=== PATIENT | male | born 1970 | race Caucasian/White ===

== ENCOUNTER → 2021-10-01 13:10 | Outpatient (BNVA) | payer OTHER, SELFPAY | PROVIDERS: PCP Family Medicine; Visit Provider Physician Assistant | DX: E66.01 Morbid (severe) obesity due to excess calories (principal); I10 Essential (primary) hypertension; K21.9 Gastro-esophageal reflux disease without esophagitis; M51.26 Other intervertebral disc displacement, lumbar region; I49.1 Atrial premature depolarization; Z68.44 Body mass index [BMI] 60.0-69.9, adult | CPT/HCPCS: 99202 ==

== ENCOUNTER → 2021-11-03 14:00 | Outpatient (BNVA) | payer OTHER, SELFPAY | PROVIDERS: PCP Family Medicine; Visit Provider Counselor Mental Health | DX: F41.1 Generalized anxiety disorder (principal); E66.01 Morbid (severe) obesity due to excess calories; F17.220 Nicotine dependence, chewing tobacco, uncomplicated | CPT/HCPCS: 90791 ==